=== PATIENT | male | born 1960 | race Caucasian/White ===

== ENCOUNTER 2016-09-29 11:18 | Emergency (ER) | payer OTHER ==
[~2016-09-29] VITALS: Ht 172.7 cm; Wt 75.0 kg
[2016-09-29 11:20] VITALS: BP 167/84; PULSE 72; RESP 20; TEMP 97.7; O2SAT 99
[2016-09-29] MEDS ORDERED: ASPIRIN 81 MG CHEW TAB PO ONE (12:15)
[2016-09-29 12:16] VITALS: O2SAT 99
[2016-09-29] MEDS: NITROGLYCERIN 0.4 MG SL 25 TABS/BTL SL SCH ×3 (12:20→12:38)
--- NOTE | 2016-09-29 12:23 | PD ---
HPI Chief Complaint: Chest Pain Time Seen by Provider: 12:05 Travel History International Travel<30 days: No Contact w/Intl Traveler<30days: No Traveled to known affect area: No History of Present Illness HPI Patient is a 56 year old male who presents to emergency room with complaints of chest pain. Patient reports that he began having chest pain yesterday morning after he woke up, reports that chest pain is a sharp and stabbing sensation to left-sided chest. Patient reports that nothing makes his chest pain better or worse, reports that he woke this morning with similar pains. Patient reports that he feels short of breath with symptoms, denies diaphoresis, denies nausea or vomiting. Patient reports that he has never had chest pain in the past, reports that he has no medical problems - reports that he has not seen a physician in years. Patient is a one pack per day smoker, reports strong family history of cardiac disease and MD with his father. PFSH Past Medical History Blood Disorders: No Cancer: No Cardiovascular Problems: No High Cholesterol: Yes Diabetes: No Endocrine: No Gastrointestinal Disorders: Yes (CONSTANT UPSET STOMACH) Genitourinary: No Hepatitis: No Hiatal Hernia: Yes (POSSIBLE) Immune Disorder: No Musculoskeletal: Yes (BACK PROBLEMS--BROKEN A TEENAGER--RESIDUAL PAIN) Neurologic: No Psychiatric: No Reproductive: No Respiratory: Yes (SLEEP APNEA, SMOKES 1PPD) Immunizations Current: Yes Thyroid Disease: No Tetanus Vaccination: < 5 Years Past Surgical History AICD: No Appendectomy: Yes Body Medical Devices: L ANKLE HARDWARE Joint Replacement: No Pacemaker: No Other Surgery: Yes (LAP APPY) Family History Family Myocardial Infarction: Yes Social History Alcohol Use: Yes (6 PACK A DAY) Tobacco Use: Yes (1 PPD) Substance Use: No Allergies-Medications (Allergen,Severity, Reaction): Coded Allergies: No Known Allergies (Verified , 09/29/16) Reported Meds & Prescriptions Reported Meds & Active Scripts Active No Active Prescriptions or Reported Medications Review of Systems General / Constitutional: No: Fever Eyes: No: Visual changes HENT: No: Headaches Cardiovascular: Positive: Chest Pain or Discomfort, No: Palpitations, Irregular Rhythm Respiratory: Positive: Shortness of Breath Gastrointestinal: No: Abdominal Pain Genitourinary: No: Dysuria Musculoskeletal: No: Pain Skin: No Rash Neurologic: No: Weakness Psychiatric: No: Depression Endocrine: No: Polydipsia Hematologic/Lymphatic: No: Easy Bruising Physical Exam Narrative GENERAL: nad,nontoxic SKIN: Warm and dry. HEAD: Atraumatic. Normocephalic. EYES: Pupils equal and round. No scleral icterus. No injection or drainage. ENT: No nasal bleeding or discharge. Mucous membranes pink and moist. NECK: Trachea midline. No JVD. CARDIOVASCULAR: Regular rate and rhythm. No murmur appreciated. RESPIRATORY: No accessory muscle use. Clear to auscultation. Breath sounds equal bilaterally. GASTROINTESTINAL: Abdomen soft, non-tender, nondistended. Hepatic and splenic margins not palpable. MUSCULOSKELETAL: No obvious deformities. No clubbing. No cyanosis. No edema. NEUROLOGICAL: Awake and alert. No obvious cranial nerve deficits. Motor grossly within normal limits. Normal speech. PSYCHIATRIC: Appropriate mood and affect; insight and judgment normal. Data Data Last Documented VS Vital Signs Date Time Temp Pulse Resp B/P Pulse Ox O2 Delivery O2 Flow Rate FiO2 09/29/16 12:16 99 09/29/16 12:07 Nasal Cannula 2 09/29/16 11:20 97.7 72 20 167/84 Orders B-Type Natriuretic Peptide (09/29/16 12:14) Ckmb (Isoenzyme) Profile (09/29/16 12:14) Complete Blood Count With Diff (09/29/16 12:14) Comprehensive Metabolic Panel (09/29/16 12:14) D-Dimer (09/29/16 12:14) Prothrombin Time / Inr (Pt) (09/29/16 12:14) Act Partial Throm Time (Ptt) (09/29/16 12:14) Troponin I (09/29/16 12:14) Chest, Single Ap (09/29/16 12:14) Ecg Monitoring (09/29/16 12:14) Iv Access Insert/Monitor (09/29/16 12:14) Oximetry (09/29/16 12:14) Aspirin Chew (Aspirin Chew) (09/29/16 12:15) Nitroglycerin Sl (Nitrostat Sl) (09/29/16 12:15) CKMB (09/29/16 12:20) CKMB% (09/29/16 12:20) Labs Laboratory Tests Test 09/29/16 12:20 White Blood Count 7.5 TH/MM3 Red Blood Count 4.20 MIL/MM3 Hemoglobin 14.9 GM/DL Hematocrit 42.0 % Mean Corpuscular Volume 100.0 FL Mean Corpuscular Hemoglobin 35.5 PG Mean Corpuscular Hemoglobin 35.5 % Concent Red Cell Distribution Width 12.4 % Platelet Count 147 TH/MM3 Mean Platelet Volume 10.0 FL Neutrophils (%) (Auto) 63.7 % Lymphocytes (%) (Auto) 23.2 % Monocytes (%) (Auto) 11.3 % Eosinophils (%) (Auto) 0.8 % Basophils (%) (Auto) 1.0 % Neutrophils # (Auto) 4.8 TH/MM3 Lymphocytes # (Auto) 1.7 TH/MM3 Monocytes # (Auto) 0.8 TH/MM3 Eosinophils # (Auto) 0.1 TH/MM3 Basophils # (Auto) 0.1 TH/MM3 CBC Comment DIFF FINAL Differential Comment Prothrombin Time 10.7 SEC Prothromb Time International 1.0 RATIO Ratio Activated Partial 28.0 SEC Thromboplast Time D-Dimer Quantitative (PE/DVT) 0.23 MG/L FEU Sodium Level 139 MEQ/L Potassium Level 4.0 MEQ/L Chloride Level 105 MEQ/L Carbon Dioxide Level 24.7 MEQ/L Anion Gap 9 MEQ/L Blood Urea Nitrogen 13 MG/DL Creatinine 0.78 MG/DL Estimat Glomerular Filtration 104 ML/MIN Rate Random Glucose 92 MG/DL Calcium Level 8.7 MG/DL Total Bilirubin 0.4 MG/DL Aspartate Amino Transf 91 U/L (AST/SGOT) Alanine Aminotransferase 103 U/L (ALT/SGPT) Alkaline Phosphatase 77 U/L Total Creatine Kinase 139 U/L Creatine Kinase MB 1.3 NG/ML Troponin I LESS THAN 0.02 NG/ML B-Type Natriuretic Peptide 22 PG/ML Total Protein 8.2 GM/DL Albumin 4.1 GM/DL [facility] Medical Decision Making Medical Screen Exam Complete: Yes Emergency Medical Condition: Yes Interpretation(s) EKG at 1148: NSR at 61bpm, qt/qtc: 415/418, no acute st or t wave changes Differential Diagnosis acs, arrhythmia, PE, electrolyte abnormality Narrative Course Patient is a 56 year old male who presents to ER with c/o of chest pain. Patient with onset of chest pain yesterday, reports that chest and sharp and stabbing in nature and located his left chest. Patient denies any trauma or injuries to his chest. Reports shortness of breath of symptoms. Patient was placed on a monitor car operator upon arrival to emergency room. EKG obtained, patient with normal sinus rhythm at 61 bpm, no acute ST-T wave changes. Plan to give patient sublingual nitroglycerin to see if this helps with this chest pain. Labs as well as cardiac enzymes and x-ray chest ordered Laboratory Tests Test 09/29/16 12:20 White Blood Count 7.5 TH/MM3 (4.0-11.0) Red Blood Count 4.20 MIL/MM3 (4.50-5.90) Hemoglobin 14.9 GM/DL (13.0-17.0) Hematocrit 42.0 % (39.0-51.0) Mean Corpuscular Volume 100.0 FL (80.0-100.0) Mean Corpuscular Hemoglobin 35.5 PG (27.0-34.0) Mean Corpuscular Hemoglobin 35.5 % Concent (32.0-36.0) Red Cell Distribution Width 12.4 % (11.6-17.2) Platelet Count 147 TH/MM3 (150-450) Mean Platelet Volume 10.0 FL (7.0-11.0) Neutrophils (%) (Auto) 63.7 % (16.0-70.0) Lymphocytes (%) (Auto) 23.2 % (9.0-44.0) Monocytes (%) (Auto) 11.3 % (0.0-8.0) Eosinophils (%) (Auto) 0.8 % (0.0-4.0) Basophils (%) (Auto) 1.0 % (0.0-2.0) Neutrophils # (Auto) 4.8 TH/MM3 (1.8-7.7) Lymphocytes # (Auto) 1.7 TH/MM3 (1.0-4.8) Monocytes # (Auto) 0.8 TH/MM3 (0-0.9) Eosinophils # (Auto) 0.1 TH/MM3 (0-0.4) Basophils # (Auto) 0.1 TH/MM3 (0-0.2) CBC Comment DIFF FINAL Differential Comment Prothrombin Time 10.7 SEC (9.8-11.6) Prothromb Time International 1.0 RATIO Ratio Activated Partial 28.0 SEC Thromboplast Time (24.3-30.1) D-Dimer Quantitative (PE/DVT) 0.23 MG/L FEU (0.00-0.50) Sodium Level 139 MEQ/L (136-145) Potassium Level 4.0 MEQ/L (3.5-5.1) Chloride Level 105 MEQ/L (98-107) Carbon Dioxide Level 24.7 MEQ/L (21.0-32.0) Anion Gap 9 MEQ/L (5-15) Blood Urea Nitrogen 13 MG/DL (7-18) Creatinine 0.78 MG/DL (0.60-1.30) Estimat Glomerular Filtration 104 ML/MIN Rate (>89) Random Glucose 92 MG/DL (74-106) Calcium Level 8.7 MG/DL (8.5-10.1) Total Bilirubin 0.4 MG/DL (0.2-1.0) Aspartate Amino Transf 91 U/L (15-37) (AST/SGOT) Alanine Aminotransferase 103 U/L (12-78) (ALT/SGPT) Alkaline Phosphatase 77 U/L (45-117) Total Creatine Kinase 139 U/L (39-308) Creatine Kinase MB 1.3 NG/ML (0.5-3.6) Troponin I LESS THAN 0.02 NG/ML (0.02-0.05) B-Type Natriuretic Peptide 22 PG/ML (0-100) Total Protein 8.2 GM/DL (6.4-8.2) Albumin 4.1 GM/DL (3.4-5.0) AMA: The risks of leaving against medical advice without further evaluation treatment were discussed with the patient. These risks include cardiac dysfunction, cardiac dysrhythmia, possible heart attack, possible stroke or . The patient indicated understanding of these risks and appeared to have the capacity to make this decision. Patient understands that he may return to the emergency room at any time for further evaluation of his chest pain Diagnosis Primary Impression: Chest pain Qualified Code: R07.9 - Chest pain, unspecified type Additional Impression: Smoking addiction Patient Instructions: General Instructions Additional Instructions: Please take a baby aspirin every single day Return to the emergency room at any time should you want further workup of your symptoms Please follow-up with your primary care doctor and photogrammetric tech as soon as possible Return to ER as needed Scripts No Active Prescriptions or Reported Meds Disposition: 07 AGAINST MEDICAL ADVICE Condition: Serious Elidia Caraballo DO Sep 29, 2016 12:23
[2016-09-29 12:38] LABS: AUTOMATED NEUTROPHIL # 4.8 TH/MM3 (1.8-7.7); BASOPHIL # 0.1 TH/MM3 (0-0.2); EOSINOPHIL # 0.1 TH/MM3 (0-0.4); EOSINOPHIL % 0.8 % (0.0-4.0); HEMO FLAGS DIFF FINAL; LYMPH % 23.2 % (9.0-44.0); LYMPHOCYTE # 1.7 TH/MM3 (1.0-4.8); MEAN CORPUSCULAR HEMOGLOBIN 35.5 PG (27.0-34.0); MEAN CORPUSCULAR HGB CONC 35.5 % (32.0-36.0); MONO % 11.3 % (0.0-8.0); NEUT % 63.7 % (16.0-70.0); PLATELET COUNT 147 TH/MM3 (150-450); RED CELL DISTRIBUTION WIDTH 12.4 % (11.6-17.2); WHITE BLOOD COUNT 7.5 TH/MM3 (4.0-11.0)
[2016-09-29 12:51] LABS: ALT (GPT) 103 U/L (12-78); ANION GAP 9 MEQ/L (5-15); AST (GOT) 91 U/L (15-37); BICARBONATE 24.7 MEQ/L (21.0-32.0); BLOOD UREA NITROGEN 13 MG/DL (7-18); CHLORIDE 105 MEQ/L (98-107); GLOMERULAR FILTRATION RATE 104 ML/MIN (>89); SODIUM (NA) 139 MEQ/L (136-145)
[2016-09-29 12:55] LABS: ALKALINE PHOSPHATASE 77 U/L (45-117); CREATINE KINASE 139 U/L (39-308); TOTAL BILIRUBIN ADULT 0.4 MG/DL (0.2-1.0)
[2016-09-29 13:02] LABS: PROTHROMBIN TIME - PATIENT 10.7 SEC (9.8-11.6)
[2016-09-29 13:07] LABS: CKMB 1.3 NG/ML (0.5-3.6)
--- NOTE | 2016-09-29 14:26 | RADRPT ---
EXAM DATE/TIME: 09/29/2016 12:27 [facility] COMPARISON: CHEST SINGLE AP, September 10, 2012, 9:39. INDICATIONS : Left side chest pains with shortness of breath. MEDICAL HISTORY : None. SURGICAL HISTORY : None. ENCOUNTER: Initial ACUITY: 1 day PAIN SCORE: 6/10 LOCATION: Left chest FINDINGS: Portable AP view of the chest demonstrates a normal-sized cardiac silhouette. There is stable interst itial prominence in the lower lung zones bilaterally. No effusion, consolidation, or pneumothorax is visualized. Bones and soft tissues demonstrate no acute finding. CONCLUSION: Stable interstitial prominence at the lung bases. Otherwise, no acute finding is identified. Eric Grey MD on September 29, 2016 at 14:24 Board Certified Radiologist. This report was verified electronically.
--- NOTE | 2016-09-30 15:55 | EKG ---
Date Performed: 09/29/2016 Time Performed: 11:48:28 PTAGE: 56 years EKG: Sinus rhythm NORMAL ECG PREVIOUS TRACING : 04/21/2014 06.50 No significant change from previous tracing noted. DOCTOR: Isaac Shah Interpretating Date/Time 09/30/2016 15:53:44
== END 2016-09-29 15:27 | disposition left against medical advice (07) ==
LOC: NEPC 11:18
DX: R07.9 Chest pain, unspecified (principal); F17.210 Nicotine dependence, cigarettes, uncomplicated; E78.00 Pure hypercholesterolemia, unspecified; F10.20 Alcohol dependence, uncomplicated
CPT/HCPCS: 71010; 80053; 82550; 82552; 83880; 84484; 85025; 85379; 85610; 85730; 93005

== ENCOUNTER 2017-02-04 11:06 | Emergency (ER) | payer OTHER ==
[2017-02-04 11:07] VITALS: BP 140/82; PULSE 80; RESP 24; TEMP 98.1; O2SAT 99
[2017-02-04] MEDS ORDERED: ONDANSETRON HCL 4 MG/2 ML VIAL IV PUSH ONE (11:45)
[2017-02-04] MEDS ORDERED: MORPHINE SULFATE 4 MG/ML INJ IV PUSH ONE (11:45)
[2017-02-04] MEDS ORDERED: MORPHINE SULFATE 8 MG/ML INJ IV PUSH ONE (12:00)
[2017-02-04 12:20] LABS: BASOPHIL # 0.1 TH/MM3 (0-0.2); BASOPHIL % 1.2 % (0.0-2.0); EOSINOPHIL % 0.7 % (0.0-4.0); HEMATOCRIT 39.3 % (39.0-51.0); HEMO FLAGS DIFF FINAL; LYMPHOCYTE # 1.2 TH/MM3 (1.0-4.8); MEAN CELL VOLUME 100.6 FL (80.0-100.0); MEAN CORPUSCULAR HGB CONC 35.8 % (32.0-36.0); MONO % 11.6 % (0.0-8.0); NEUT % 62.5 % (16.0-70.0); PLATELET COUNT 150 TH/MM3 (150-450); RED BLOOD COUNT 3.91 MIL/MM3 (4.50-5.90); RED CELL DISTRIBUTION WIDTH 12.2 % (11.6-17.2); WHITE BLOOD COUNT 4.8 TH/MM3 (4.0-11.0)
[2017-02-04 12:38] LABS: ALT (GPT) 84 U/L (12-78)
[2017-02-04 12:44] LABS: ANION GAP 8 MEQ/L (5-15); AST (GOT) 86 U/L (15-37); BICARBONATE 22.8 MEQ/L (21.0-32.0); BLOOD UREA NITROGEN 20 MG/DL (7-18); CHLORIDE 109 MEQ/L (98-107); GLOMERULAR FILTRATION RATE 102 ML/MIN (>89); POTASSIUM 4.5 MEQ/L (3.5-5.1); SODIUM (NA) 140 MEQ/L (136-145)
[2017-02-04 12:45] LABS: ALKALINE PHOSPHATASE 72 U/L (45-117); TOTAL BILIRUBIN ADULT 0.4 MG/DL (0.2-1.0)
--- NOTE | 2017-02-04 12:56 | RADRPT ---
EXAM DATE/TIME: 02/04/2017 12:04 [facility] COMPARISON: No previous studies available for comparison. INDICATIONS : Testicular pain. MEDICAL HISTORY : Hypercholesterolemia. Sleep apnea. Hiatal hernia. Left hydrocele SURGICAL HISTORY : Appendectomy. Left ankle surgery. Pacemaker replacement. ENCOUNTER: Initial ACUITY: 1 day PAIN SCORE: 10/10 LOCATION: Bilateral testicles. MEASUREMENTS: RIGHT TESTICLE: 4.3 x 2.8 x 2.1 cm LEFT TESTICLE: 4.5 x 3.0 x 1.8 cm FINDINGS: RIGHT TESTICLE: Homogeneous echotexture without intra or extratesticular mass. Blood flow is symmetric and within no rmal limits. A tiny hydrocele No varicocele. Epididymis is within normal limits. LEFT TESTICLE: Homogeneous echotexture without intra or extratesticular mass. Blood flow is symmetric and within no rmal limits. A tiny hydrocele. No varicocele. A 9 mm simple cyst is seen involving the epididymal hea d. Epididymis is within normal limits. SCROTUM: Within normal limits. CONCLUSION: 1. Tiny bilateral hydroceles. 2. 9 mm epididymal head cyst on the left. 3. Symmetrical blood flow. Tj Kitchen Jr., MD on February 04, 2017 at 12:46 Board Certified Radiologist. This report was verified electronically.
[2017-02-04 14:28] LABS: BLOOD, URINE NEG (NEG); COMMENT (UR) CULT NOT INDICATED; CULTURE IF INDICATED CULT NOT INDICATED; GLUCOSE,URINE NEG (NEG); KETONE, URINE NEG (NEG); NITRITE,URINE NEG (NEG); URINE COLOR YELLOW (YELLW/STRAW)
--- NOTE | 2017-02-04 14:51 | PD ---
HPI Chief Complaint: Complaint Time Seen by Provider: 11:22 Travel History International Travel<30 days: No Contact w/Intl Traveler<30days: No Traveled to known affect area: No History of Present Illness HPI Patient is a 56-year-old male who comes in complaining of left testicular pain. He says it started yesterday while he was mowing the lawn around 11 AM. He says the pain mostly comes on when he exerts himself. He went to urgent care, they sent him here to have an ultrasound. He does have history of a left-sided inguinal hernia as well as left-sided hydrocele. He denies any issues urinating. He has not noticed any swelling to the testicle. He denies any nausea or vomiting. He has not had any issues with bowel movements. PFSH Past Medical History Blood Disorders: No Cancer: No Cardiovascular Problems: No High Cholesterol: Yes Diabetes: No Endocrine: No Gastrointestinal Disorders: Yes (CONSTANT UPSET STOMACH) Genitourinary: No Hepatitis: No Hiatal Hernia: Yes (POSSIBLE) Immune Disorder: No Musculoskeletal: Yes (BACK PROBLEMS--BROKEN A TEENAGER--RESIDUAL PAIN) Neurologic: No Psychiatric: No Reproductive: No Respiratory: Yes (SLEEP APNEA, SMOKES 1PPD) Immunizations Current: Yes Thyroid Disease: No Past Surgical History AICD: No Appendectomy: Yes Body Medical Devices: L ANKLE HARDWARE Joint Replacement: No Pacemaker: No Other Surgery: Yes (LAP APPY) Social History Alcohol Use: Yes Tobacco Use: Yes Substance Use: Yes (" smoke weed sometimes) Allergies-Medications (Allergen,Severity, Reaction): Coded Allergies: No Known Allergies (Verified , 09/29/16) Reported Meds & Prescriptions Reported Meds & Active Scripts Active Tramadol (Tramadol HCl) 50 Mg Tab 50 Mg PO Q6H PRN Review of Systems Except as stated in HPI: all other systems reviewed are Neg General / Constitutional: No: Fever, Chills Eyes: No: Blurred Vision HENT: No: Headaches, Lightheadedness Cardiovascular: No: Chest Pain or Discomfort Respiratory: No: Shortness of Breath Gastrointestinal: No: Nausea, Vomiting Genitourinary: Positive: Other (testicular pain), No: Dysuria Skin: No Rash, No Change in Pigmentation Neurologic: No: Weakness, Dizziness Physical Exam Narrative GENERAL: Awake and alert, in no acute distress. SKIN: Focused skin assessment warm/dry. HEAD: Atraumatic. Normocephalic. EYES: Pupils equal and round. No scleral icterus. ENT: Mucous membranes pink and moist. NECK: Trachea midline. No JVD. CARDIOVASCULAR: Regular rate and rhythm. No murmur appreciated. RESPIRATORY: No accessory muscle use. Clear to auscultation. Breath sounds equal bilaterally. GASTROINTESTINAL: Abdomen soft, non-tender, nondistended. : Performed in the presence of a nurse. No testicular swelling or masses. Some Tenderness to palpation of the left testicle. No hernia appreciated. MUSCULOSKELETAL: No obvious deformities. No clubbing. No cyanosis. No edema. NEUROLOGICAL: Awake and alert. No obvious cranial nerve deficits. Motor grossly within normal limits. Normal speech. PSYCHIATRIC: Appropriate mood and affect; insight and judgment normal. Data Data Last Documented VS Vital Signs Date Time Temp Pulse Resp B/P Pulse Ox O2 Delivery O2 Flow Rate FiO2 02/04/17 11:07 98.1 80 24 140/82 99 Room Air Orders Complete Blood Count With Diff (02/04/17 11:37) Comprehensive Metabolic Panel (02/04/17 11:37) Us Testicles W Doppler (02/04/17 ) Iv Access Insert/Monitor (02/04/17 11:37) Morphine Inj (Morphine Inj) (02/04/17 11:45) Ondansetron Inj (Zofran Inj) (02/04/17 11:45) Morphine Inj (Morphine Inj) (02/04/17 12:00) Urinalysis - C+S If Indicated (02/04/17 13:07) Labs Laboratory Tests Test 02/04/17 02/04/17 11:45 13:30 White Blood Count 4.8 TH/MM3 Red Blood Count 3.91 MIL/MM3 Hemoglobin 14.1 GM/DL Hematocrit 39.3 % Mean Corpuscular Volume 100.6 FL Mean Corpuscular Hemoglobin 36.0 PG Mean Corpuscular Hemoglobin 35.8 % Concent Red Cell Distribution Width 12.2 % Platelet Count 150 TH/MM3 Mean Platelet Volume 10.2 FL Neutrophils (%) (Auto) 62.5 % Lymphocytes (%) (Auto) 24.0 % Monocytes (%) (Auto) 11.6 % Eosinophils (%) (Auto) 0.7 % Basophils (%) (Auto) 1.2 % Neutrophils # (Auto) 3.0 TH/MM3 Lymphocytes # (Auto) 1.2 TH/MM3 Monocytes # (Auto) 0.6 TH/MM3 Eosinophils # (Auto) 0.0 TH/MM3 Basophils # (Auto) 0.1 TH/MM3 CBC Comment DIFF FINAL Differential Comment Sodium Level 140 MEQ/L Potassium Level 4.5 MEQ/L Chloride Level 109 MEQ/L Carbon Dioxide Level 22.8 MEQ/L Anion Gap 8 MEQ/L Blood Urea Nitrogen 20 MG/DL Creatinine 0.79 MG/DL Estimat Glomerular Filtration 102 ML/MIN Rate Random Glucose 105 MG/DL Calcium Level 8.6 MG/DL Total Bilirubin 0.4 MG/DL Aspartate Amino Transf 86 U/L (AST/SGOT) Alanine Aminotransferase 84 U/L (ALT/SGPT) Alkaline Phosphatase 72 U/L Total Protein 7.7 GM/DL Albumin 3.4 GM/DL Urine Color YELLOW Urine Turbidity CLEAR Urine pH 6.0 Urine Specific [place] 1.024 Urine Protein NEG mg/dL Urine Glucose (UA) NEG mg/dL Urine Ketones NEG mg/dL Urine Occult Blood NEG Urine Nitrite NEG Urine Bilirubin NEG Urine Urobilinogen LESS THAN 2.0 MG/DL Urine Leukocyte Esterase NEG Urine RBC LESS THAN 1 /hpf Urine WBC 1 /hpf Microscopic Urinalysis Comment CULT NOT INDICATED MDM Medical Decision Making Medical Screen Exam Complete: Yes Emergency Medical Condition: Yes Medical Record Reviewed: Yes Differential Diagnosis Torsion vs epididymitis vs orchitis Narrative Course Patient is a 56-year-old male comes in complaining of testicular pain. Exam shows pain with palpation. IV established, labs sent. Labs show no acute abnormalities. Ultrasound shows an epididymal cyst, no other abnormalities. Urine is negative for infection. Patient given pain medicine. Last 24 hours Impressions Scrotum Ultrasound 02/04/17 0000 Signed Impressions: Service Date/Time: Saturday, February 04, 2017 12:04 - CONCLUSION: 1. Tiny bilateral hydroceles. 2. 9 mm epididymal head cyst on the left. 3. Symmetrical blood flow. Tj Kitchen Jr., MD Will discharge with pain medication. Advised to follow up with urology. Advised to return to the ED as needed for any worsening symptoms. Diagnosis Primary Impression: Left testicular pain Patient Instructions: General Instructions, Testicular Self-examination (ED) Additional Instructions: Take pain medicine as needed. Follow up with urology. Return to the Emergency Department as needed for any worsening symptoms. Scripts Tramadol 50 Mg Tab50 Mg PO Q6H PRN (PAIN) #15 TAB Ref 0 Prov:Marjan Wong MD 02/04/17 Disposition: 01 DISCHARGE HOME Condition: Stable Marjan Wong MD Feb 04, 2017 14:51
[2017-02-04] MEDS ORDERED: TRAM50TA PO (16:06)
== END 2017-02-04 16:11 | disposition home or self-care (01) ==
LOC: NEPD 11:06
DX: N50.812 Left testicular pain (principal); N43.3 Hydrocele, unspecified; L72.9 Follicular cyst of the skin and subcutaneous tissue, unspecified; E78.00 Pure hypercholesterolemia, unspecified; G47.30 Sleep apnea, unspecified; F17.200 Nicotine dependence, unspecified, uncomplicated; Z79.899 Other long term (current) drug therapy
CPT/HCPCS: 76870; 80053; 81001; 85025; 93975; 96374; 96375; 99285; J2270; J2405